=== PATIENT | male | born 1950 | race African-American/Black ===

== ENCOUNTER 2022-06-16 12:45 | Inpatient (IN) | payer MEDICARE, MEDICAID ==
[~2022-06-16] VITALS: Ht 167.6 cm; Wt 77.6 kg
[~2022-06-16 12:45] MED LIST: AMLO5TAB4 PO; ASPI-1497 PO; BIMA2.5D4 OP; BRIM10DR2 EACHEYE; DARU1TAB MT; DOLU50TA MT; DORZ10DR9 OP; TAMS-11 MT; TAMS0.4C31 PO; WARF1TAB85 PO; WARF3TAB58 PO; WARF7.5T22 PO
[2022-06-16] MEDS ORDERED: MORPHINE SULFATE 4 MG/ML CPJ (NOT FOR IM USE) IV ONE (13:45)
[2022-06-16] MEDS ORDERED: NITROGLYCERIN 0.4MG TABLET SL SL ONE (14:00)
[2022-06-16 14:15] LABS: CHLORIDE 111 mEq/L (98-107)
[2022-06-16 14:34] LABS: BASOPHILS % 1.1 % (0.0-2.0); EOSINOPHILS % 7.4 % (0.0-5.0); HEMATOCRIT. 41.5 % (42.0-52.0); HEMOGLOBIN. 13.6 g/dL (14.0-18.0); LYMPHOCYTES % 30.3 % (20.0-50.0); MEAN CORPUSCULAR HEMOGLOBIN 29.1 pg (28.0-32.0); MEAN CORPUSCULAR VOLUME 88.9 fL (80.0-94.0); MEAN PLATELET VOLUME 8.4 fl (7.4-10.4); NEUTROPHILS % 50.2 % (40.0-76.0); PLATELET 224 x1000/uL (130-400); RED BLOOD CELL COUNT 4.67 mill/uL (4.7-6.1); RED CELL DISTRIBUTION WIDTH 16.6 % (11.6-14.6)
[2022-06-16 16:00] VITALS: BP 109/66
[2022-06-16 16:30] VITALS: BP 109/66
[2022-06-16] MEDS ORDERED: ACETAMINOPHEN 325MG TABLET PO PRN (18:45)
[2022-06-16] MEDS ORDERED: ONDANSETRON HCL 4MG/2ML INJ IV PRN (18:45)
[2022-06-16] MEDS ORDERED: MORPHINE SULFATE 2 MG/ML CPJ (NOT FOR IM USE) IV PRN (18:45)
[2022-06-16] MEDS ORDERED: DOCUSATE SODIUM 100MG CAPSULE PO PRN (18:45)
[2022-06-16] MEDS ORDERED: MAGNESIUM/ALUMINUM HYDROXIDE/SIMETHICONE 30ML UDC PO PRN (18:45)
[2022-06-16] MEDS ORDERED: TRAMADOL 50MG TABLET PO PRN (18:45)
[2022-06-16] MEDS ORDERED: GUAIFENESIN 200MG/10ML SUGAR FREE UDC PO PRN (18:45)
[2022-06-16] MEDS ORDERED: NALOXONE HCL 0.4MG/ML VIAL IV PRN (19:00)
[2022-06-16 20:00] VITALS: BP 111/74
[2022-06-16] MEDS ORDERED: PNEUMOCOCCAL 23-VAL P-SAC VAC 0.5 ML IM ONE (20:00)
[2022-06-16] MEDS ORDERED: ENOXAPARIN 40MG/0.4ML SYR SUBCUT SCH (20:00)
[2022-06-17] VITALS: BP 112/74
[2022-06-17 04:00] VITALS: BP 119/70
[2022-06-17 07:21] LABS: BASOPHILS % 0.8 % (0.0-2.0); EOSINOPHILS % 8.4 % (0.0-5.0); HEMATOCRIT. 42.4 % (42.0-52.0); HEMOGLOBIN. 13.7 g/dL (14.0-18.0); LYMPHOCYTES % 40.2 % (20.0-50.0); MEAN CORPUSCULAR VOLUME 89.5 fL (80.0-94.0); MEAN PLATELET VOLUME 8.4 fl (7.4-10.4); MONOCYTES % 10.6 % (2.0-8.0); PLATELET 205 x1000/uL (130-400); RED BLOOD CELL COUNT 4.74 mill/uL (4.7-6.1); RED CELL DISTRIBUTION WIDTH 16.5 % (11.6-14.6)
[2022-06-17 07:41] LABS: CHLORIDE 111 mEq/L (98-107)
[2022-06-17 08:30] VITALS: BP 120/75
[2022-06-17] MEDS: AMLODIPINE 10MG TABLET PO SCH (09:38)
[2022-06-17 12:30] VITALS: BP 129/68
[2022-06-17] MEDS: ASPIRIN 81MG EC TABLET PO SCH ×2 (14:15→15:47)
[2022-06-17] MEDS ORDERED: DORZOLAM/TIMOLOL 2.23/0.68% OPHTH DROPS 10ML BOTHEYE SCH (15:00)
[2022-06-17] MEDS: TAMSULOSIN HCL 0.4MG SR CAPSULE PO SCH (15:47)
[2022-06-17 16:22] VITALS: BP 128/69
[2022-06-17 16:34] LABS: INR 1.7; PROTHROMBIN TIME 17.5 sec (9.6-11.0)
[2022-06-17] MEDS: DORZOLAM/TIMOLOL 2.23/0.68% OPHTH DROPS 10ML BOTHEYE SCH ×2 (16:54→21:20)
[2022-06-17] MEDS ORDERED: WARFARIN SODIUM 5MG TABLET PO SCH (18:30)
[2022-06-17 20:10] VITALS: BP 123/57
[2022-06-17] MEDS ORDERED: ATORVASTATIN CALCIUM 20MG TABLET PO SCH (21:00)
[2022-06-18] VITALS: BP 116/61
[2022-06-18 04:30] VITALS: BP 158/79
[2022-06-18 07:27] LABS: HEMATOCRIT 39.7 % (42.0-52.0); HEMOGLOBIN 13.1 g/dL (14.0-18.0); MEAN CORPUSCULAR HEMOGLOBIN 29.6 pg (28.0-32.0); MEAN CORPUSCULAR VOLUME 89.4 fL (80.0-94.0); PLATELET 192 x1000/uL (130-400); RED BLOOD CELL COUNT 4.45 mill/uL (4.7-6.1); RED CELL DISTRIBUTION WIDTH 16.4 % (11.6-14.6)
[2022-06-18 07:35] LABS: INR 1.4; PROTHROMBIN TIME 14.5 sec (9.6-11.0)
[2022-06-18 08:00] VITALS: BP 165/81
[2022-06-18 08:12] LABS: CHLORIDE 109 mEq/L (98-107)
[2022-06-18] MEDS ORDERED: WARFARIN SODIUM 2.5MG TABLET PO ONE (09:00)
[2022-06-18] MEDS: TAMSULOSIN HCL 0.4MG SR CAPSULE PO SCH (09:55)
[2022-06-18] MEDS: DORZOLAM/TIMOLOL 2.23/0.68% OPHTH DROPS 10ML BOTHEYE SCH (09:55)
[2022-06-18] MEDS: ASPIRIN 81MG EC TABLET PO SCH (09:56)
[2022-06-18] MEDS: AMLODIPINE 10MG TABLET PO SCH (09:57)
[2022-06-18 12:00] VITALS: BP 133/79
[2022-06-18] MEDS ORDERED: LOSARTAN POTASSIUM 25 MG TABLET PO SCH (12:15)
[2022-06-18 15:42] VITALS: BP 127/77
[2022-06-18] MEDS ORDERED: WARFARIN SODIUM 3MG TABLET PO SCH (18:00)
[2022-06-18 23:26] LABS: *AMPHETAMINES SCREEN URINE NEGATIVE (NEGATIVE); *BARBITURATES SCREEN URINE NEGATIVE (NEGATIVE); *BENZODIAZEPINES SCREEN URINE NEGATIVE (NEGATIVE); *COCAINE SCREEN URINE PRESUMTIVE POSITIVE (NEGATIVE); CANNABINOID URINE SCREEN NEGATIVE (NEGATIVE); METHADONE URINE SCREEN NEGATIVE (NEGATIVE); OPIATES URINE SCREEN NEGATIVE (NEGATIVE); PHENCYCLIDINE URINE SCREEN NEGATIVE (NEGATIVE)
== END 2022-06-18 19:01 | disposition home or self-care (01) | DRG 302 ==
LOC: ER 12:45 → 6WST 14:46 → EDBEDREQTM 14:49 → EDBEDREQ 14:49 → ENRESERV 16:01
PROVIDERS: ADMIT Hospitalist; ATTEND Hospitalist
DX: I25.10 Atherosclerotic heart disease of native coronary artery without angina pectoris (principal); N17.0 Acute kidney failure with tubular necrosis; E44.1 Mild protein-calorie malnutrition; I13.0 Hypertensive heart and chronic kidney disease with heart failure and stage 1 through stage 4 chronic kidney disease, or unspecified chronic kidney disease; I42.8 Other cardiomyopathies; E11.22 Type 2 diabetes mellitus with diabetic chronic kidney disease; N18.9 Chronic kidney disease, unspecified; N40.0 Benign prostatic hyperplasia without lower urinary tract symptoms; I50.9 Heart failure, unspecified; E78.5 Hyperlipidemia, unspecified; F32.A Depression, unspecified; F14.10 Cocaine abuse, uncomplicated; Z88.2 Allergy status to sulfonamides; Z88.8 Allergy status to other drugs, medicaments and biological substances; Z79.01 Long term (current) use of anticoagulants; Z79.899 Other long term (current) drug therapy; Z86.711 Personal history of pulmonary embolism; Z86.718 Personal history of other venous thrombosis and embolism; Z95.1 Presence of aortocoronary bypass graft; Z86.73 Personal history of transient ischemic attack (TIA), and cerebral infarction without residual deficits; I25.2 Old myocardial infarction; Z87.891 Personal history of nicotine dependence; Z82.49 Family history of ischemic heart disease and other diseases of the circulatory system
CPT/HCPCS: 36415; 71045; 78582; 80053; 80061; 80305; 83036; 83880; 84484; 85025; 85027; 93005; 93306; 93308; 93970; 99285; A9558; J1650